=== PATIENT | male | born 1970 | race Caucasian/White ===

== ENCOUNTER 2018-02-16 11:34 | Outpatient (CLI) | payer BC | END 2018-02-16 11:35 | disposition home or self-care (01) | LOC: BICRAD 11:34 | PROVIDERS: ATTEND Podiatrist | DX: M19.072 Primary osteoarthritis, left ankle and foot (principal); E11.610 Type 2 diabetes mellitus with diabetic neuropathic arthropathy; S92.322A Displaced fracture of second metatarsal bone, left foot, initial encounter for closed fracture; M21.962 Unspecified acquired deformity of left lower leg ==

== ENCOUNTER 2018-03-07 13:06 | Outpatient (CLI) | payer BC | END 2018-03-07 13:07 | disposition home or self-care (01) | LOC: BICRAD 13:06 | PROVIDERS: ATTEND Podiatrist | DX: S92.322D Displaced fracture of second metatarsal bone, left foot, subsequent encounter for fracture with routine healing (principal) ==

== ENCOUNTER 2018-07-22 09:59 | Inpatient (IN) | payer BC, OTHER ==
--- NOTE | 2018-07-22 11:06 | RAD ---
LEFT ELBOW 4 VIEWS: HISTORY: Fracture. Injury. COMPARISON: None. FINDINGS: There is dislocation of the elbow joint with associated soft tissue swelling, joint effusion, and def ormity. There is a displaced olecranon fracture. The possibility of radial head injury cannot be ex cluded. Post reduction films are recommended. IMPRESSION: Posttraumatic changes as above. POS: [facility]
[2018-07-22] MEDS ORDERED: Ondansetron PF 4 MG/2 ML Vial ONE ×2 (11:32→12:35)
[2018-07-22] MEDS ORDERED: Morphine 2 MG/ML SYRINGE ONE (11:32)
[2018-07-22] MEDS ORDERED: PROPOFOL 20 ML ONE ×2 (11:44→13:10)
[2018-07-22 12:16] LABS: #Basophils 0.1 thou/uL (0.0-0.2); #Eosinphils 0.1 thou/uL (0.0-0.7); #Lymphocytes 1.3 thou/uL (1.20-3.40); #Monocytes 0.6 thou/uL (0.11-0.59); #Neutrophils 8.6 thou/uL (1.40-6.50); %Basophils 0.6 % (0.0-1.0); %Eosinophils 0.7 % (0.0-10.0); %Lymphocytes 12.1 % (21.0-51.0); %Monocytes 5.2 % (0.0-10.0); %Neutrophils 81.4 % (42.0-75.0); Hemoglobin 16.4 g/dL (14.0-18.0); Mean Corpuscular HGB CONC 31.7 g/dL (32.0-36.0); Mean Corpuscular Hemoglobin 27.8 pg (27.0-31.0); Mean Corpuscular Volume 87.6 fL (78.0-98.0); Mean Platelet Volume 8.4 fL (7.4-10.4); Platelet Count 250 thou/uL (130-400); RBC Distribution Width 11.7 % (11.5-14.5); Red Blood Cell (RBC) Count 5.91 mill/uL (4.70-6.10); White Blood Cell (WBC) Count 10.6 thou/uL (4.8-10.8)
[2018-07-22 12:32] LABS: ALT (SGPT) 15 U/L (8-55); AST (SGOT) 14 U/L (5-34); Alkaline Phosphatase 98 U/L (40-150); Anion Gap 14 mmol/L (10-20); BUN (Urea Nitrogen) 15 mg/dL (8.9-20.6); Calc. Creatinine Clearance 0 mL/min (70-130); Calcium 9.6 mg/dL (7.8-10.44); Carbon Dioxide 23 mmol/L (22-29); Chloride 99 mmol/L (98-107); Estimated GFR-MDRD 75; Globulin 3.2 g/dL (2.4-3.5); Glucose 343 mg/dL (70-105); Potassium 4.4 mmol/L (3.5-5.1); Protein, Total 7.2 g/dL (6.0-8.3); Sodium 132 mmol/L (136-145)
[2018-07-22] MEDS ORDERED: Lidocaine 1% PF 5 ML VIAL ONE (12:35)
[2018-07-22] MEDS ORDERED: PHENYLEPHRINE-NS 100 MCG/ML 10 ML SYRINGE ONE (12:35)
[2018-07-22] MEDS ORDERED: PROPOFOL 200 MG/20 ML VIAL ONE (12:35)
[2018-07-22] MEDS ORDERED: Ketorolac Tromethamine 30 MG/ML VIAL ONE (12:35)
[2018-07-22] MEDS ORDERED: ePHEDrine/0.9% NaCl/PF SYRINGE 50 mg/10 ml ONE (12:35)
[2018-07-22] MEDS ORDERED: KETAMINE 100 MG/ML (5ML VIAL) ONE (12:36)
--- NOTE | 2018-07-22 12:37 | CON ---
DATE OF CONSULTATION: 07/22/2018 REQUESTING PHYSICIAN: Jeny Zavaleta CONSULTING PHYSICIAN: Dr. Osmar Riley REASON FOR CONSULTATION: Left elbow fracture dislocation. HISTORY OF PRESENT ILLNESS: This is a 47-year-old male who presented to the emergency department today after a trip and fall at work. He states that he tripped over a band surrounding a pallet that was on the floor. He struck his left elbow. He noted immediate pain and the inability to move his elbow upon his fall. He denies any other injuries at the time of the fall. He is right hand dominant. Pain is worsened with movement and alleviated with rest. No numbness or tingling into the hand. PAST MEDICAL HISTORY: Significant for type 1 diabetes. PAST SURGICAL HISTORY: Significant for sinus surgery in 2005. SOCIAL HISTORY: The patient states he drinks alcohol socially every week. He denies any illicit drug use. Denies any smoking history. He lives at home with his who recently underwent brain surgery. FAMILY HISTORY: Reviewed and noncontributory. REVIEW OF SYSTEMS: A 10-point review of systems was conducted and otherwise negative except for as stated above. PHYSICAL EXAMINATION: VITAL SIGNS: Blood pressure of 112/73, pulse of 82, respiratory rate of 18, temperature of 97.4, O2 saturation is 96% on room air. GENERAL: The patient is awake and alert. He is sitting up at the bedside in the emergency department. He is in no acute distress. He is pleasant and cooperative with exam today. HEENT: Head is normocephalic, atraumatic. NECK: Supple. Trachea is midline. Breathing is nonlabored. EXTREMITIES: The left lower extremity was noted to have a moderate amount of soft tissue swelling at the olecranon region. Skin is intact overlying the fracture site. There is no tenderness to palpation at the shoulder or the proximal humerus. There is no tenderness to palpation of the forearm. Patient is unable to move his elbow at this time. Flexion and extension intact at the wrist. Patient is able to move all digits of the hand. He has difficulty with movement of the thumb. Sensation reported intact to all digits. Capillary refill 2 seconds. All other extremities examined and no other injuries are noted. RADIOGRAPHIC FINDINGS: Including 2 views of the left elbow are obtained in the emergency department. These were reviewed. These show evidence for a displaced olecranon fracture with a dislocation of the elbow joint. ASSESSMENT: Left elbow olecranon fracture with elbow dislocation. PLAN: The patient will undergo a closed reduction in the Emergency Department for better alignment of the left elbow joint. The patient states he last ate breakfast this morning at 8:30. Case discussed with Dr. Riley. We will plan for an open reduction internal fixation of a left olecranon fracture later this afternoon. Risks, benefits, and alternatives of surgery were discussed at length with the patient today. He verbalized understanding. He is amenable to go forward with this procedure. These risks include, but are not limited to bleeding, infection, neurovascular injury. We will plan to proceed with surgery later this afternoon. JAMES
--- NOTE | 2018-07-22 13:35 | RAD ---
[facility] LEFT ELBOW 2 VIEWS: Date: 07/22/18 Time: 1155 hours HISTORY: 47-year-old male status post reduction of acute, traumatic left elbow fracture, status post reduction . COMPARISON: 07/22/18 at 0928 hours. FINDINGS: There has been no significant interval change in the fracture of the olecranon process displaced prox imally relative to the rest of the ulna. The radial head remains dislocated and impacted within a fra cture defect in the caudal aspect of the capitellum. The elbow has been placed into a splint. There i s mild comminution of fracture fragments. IMPRESSION: 1. Interval placement of the elbow into a splint. 2. No interval change in alignment of the acute, traumatic, fracture-dislocation of the left elbow. POS: [facility]
--- NOTE | 2018-07-22 14:15 | RAD ---
TWO VIEWS LEFT ELBOW: HISTORY: Trauma with pain post reduction. FINDINGS: AP and lateral views left elbow obtained. Images demonstrate a fracture through the olecranon with moderate proximal distal fracture fragment d isplacement. The radial head is unremarkable. IMPRESSION: Slight somewhat reduction of the dislocated olecranon fracture. Proximal and distal fracture fragmen ts are improved when compared to the previous exam from earlier in the day. POS: [facility]
--- NOTE | 2018-07-22 14:22 | RAD ---
LEFT ELBOW 2 VIEWS: HISTORY: Post reduction. COMPARISON: Radiograph same day. FINDINGS: There is similar alignment of the transverse olecranon fracture with distraction of 1.8 cm. Large keegan int effusion. There are multiple bodies along the bilateral soft tissues. IMPRESSION: Distracted olecranon fracture. POS: [facility]
[2018-07-22] MEDS ORDERED: Insulin Regular 300 UNITS/3 ML VIAL ONE ×3 (15:28→20:07)
[2018-07-22] MEDS ORDERED: Fentanyl 100 MCG/2 ML VIAL ONE ×2 (16:06→20:32)
[2018-07-22] MEDS ORDERED: CEFAZOLIN 2 GM/50 ML BAG ONE (16:21)
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
[2018-07-22] MEDS ORDERED: Milk Of Magnesia 30 ML UDCUP PO PRN (19:43)
[2018-07-22] MEDS ORDERED: traMADol HCl 50 MG TAB PO PRN ×2 (19:43)
[2018-07-22] MEDS ORDERED: Acetaminophen/Codeine 30-300mg Tablet PO PRN ×2 (19:43)
[2018-07-22] MEDS ORDERED: HYDROcodone/Acetaminophen 10/325 mg Tablet PO PRN (19:43)
[2018-07-22] MEDS ORDERED: Fentanyl 100 MCG/2 ML VIAL SLOW IVP PRN (19:43)
[2018-07-22] MEDS ORDERED: Acetaminophen 325 MG TAB PO PRN (19:43)
[2018-07-22] MEDS ORDERED: Bisacodyl 10 MG SUPP PR PRN (19:43)
[2018-07-22] MEDS ORDERED: RENALLY ADJUST ANTIBIOTICS FS SCH (19:45)
[2018-07-22] MEDS ORDERED: Ondansetron HCl/PF 4 MG/2 ML Vial IVP PRN (19:45)
[2018-07-22] MEDS ORDERED: Promethazine HCl 25 MG/ML VIAL IM PRN (19:45)
[2018-07-22] MEDS ORDERED: Promethazine HCl 25 MG/ML VIAL SLOW IVP PRN (19:45)
[2018-07-22] MEDS ORDERED: HumaLOG 300 UNITS/3 ML VIAL ONE (20:06)
[2018-07-22 20:40] LABS: Actual Bicarbonate (HCO3a) 22.6 mEq/L (22-28); Base Excess (BEa) -2.5 mEq/L (-2.0 to +3.0); Calcium, Ionized 1.17 mmol/L (1.12-1.30); Carboxyhemoglobin (COHb) 1.1 gm% (0.0-3.0); Hemoglobin (Hb) 14.4 g/dL (14.0-18.0); O2 Tension (PaO2) 87.2 mmHg (80.0-100.0); Potassium - ABG Lab 3.99 mmol/L (3.70-5.30); pH, Arterial 7.37 (7.35-7.45)
[2018-07-22 20:46] LABS: Puncture Site RRAD
[2018-07-22] MEDS ORDERED: CEFAZOLIN 2 GM/50 ML BAG IVPB SCH (22:00)
--- NOTE | 2018-07-22 22:39 | RAD ---
THREE VIEWS OF LEFT ELBOW: 07/22/18 HISTORY: ORIF. FINDINGS: Three view examination of the left elbow provided. Evaluation is limited secondary to patient positio enrrique and the presence of a cast. There is postoperative hardware associated with the proximal left ul na, status post ORIF. No evidence for dislocation or hardware failure. IMPRESSION: Postoperative imaging as above. POS: [facility]
[2018-07-22] MEDS ORDERED: Pregabalin 75 MG CAP PO SCH (22:45)
[2018-07-22] MEDS ORDERED: Pregabalin 75 MG CAP ONE (23:14)
[2018-07-22] MEDS ORDERED: Dextrose 5% in Water 1,000 ML IV PRN (23:18)
[2018-07-22] MEDS: Aspirin 81 mg Enteric Coated Tablet PO SCH (23:18)
[2018-07-22] MEDS ORDERED: HumaLOG 300 UNITS/3 ML VIAL SC PRN ×2 (23:18)
[2018-07-22] MEDS ORDERED: Dextrose 50% Abboject 50 ML SYRINGE SLOW IVP PRN (23:18)
[2018-07-22] MEDS: HYDROcodone/Acetaminophen 10/325 mg Tablet PO PRN (23:19)
[2018-07-22] MEDS: Ketorolac Tromethamine 30 MG/ML VIAL IVP SCH (23:20)
[2018-07-22] MEDS: Ondansetron PF 4 MG/2 ML Vial IV PRN (23:59)
[2018-07-23] MEDS: Sodium Chloride 0.9% 100 ML IV SCH ×14 (00:06→15:12)
[2018-07-23] MEDS: CEFAZOLIN 2 GM/50 ML BAG IVPB SCH ×2 (00:54→09:28)
[2018-07-23 01:42] VITALS: BMI 27.7
[2018-07-23] MEDS ORDERED: Promethazine HCl 25 MG in Sodium Chloride 0.9% 50 ML IVPB PRN ×2 (02:38→02:45)
--- NOTE | 2018-07-23 03:07 | HP ---
CHIEF COMPLAINT: Left elbow injury. HISTORY OF PRESENT ILLNESS: This is a 47-year-old right-hand dominant male status post fall on his left elbow. The injury occurred at work, patient was at work and he tripped and fell on his left upper extremity specifically at the left elbow. Patient denies hitting his head or having any loss of consciousness. Patient stated that at this time, he is feeling much better status post surgery and patient is lying in bed and does not complain of any nausea, vomiting, dizziness, headaches, chest pain, palpitations, abdominal pain , hematuria, dysuria, hematochezia, melena. At this time, patient endorses pain at the left arm. REVIEW OF SYSTEMS: Positive for left arm pain, otherwise all other systems were reviewed and are negative. PAST MEDICAL HISTORY: Diabetes mellitus, type 1 on insulin pump. PAST SURGICAL HISTORY: Nasal surgery in 2005. FAMILY HISTORY: Reviewed and noncontributory to this visit. PSYCHIATRIC HISTORY: No previous psychiatric history. SOCIAL HISTORY: Patient drinks occasionally. Patient denies any illicit drug use and patient has no smoking history. ALLERGIES: Patient is allergic to BACTRIM. CURRENT MEDICATIONS: Patient does not take any medication at this time. Patient states that he uses his insulin pump. PHYSICAL EXAMINATION: VITAL SIGNS: Blood pressure 112/73, pulse of 82, respiratory rate of 18, temperature of 97.4, oxygen saturation is 96 on room air. GENERAL: Patient is currently awake, alert, oriented x3, lying in bed in the PACU, able to speak in full sentences, does not appear to be in any acute distress. HEENT: Normocephalic, atraumatic. Pupils are equally round and reactive to light. Extraocular movements are intact. No scleral icterus. Mucous membranes are moist. NECK: Trachea is midline. Full range of motion. Neck is supple. LUNGS: Clear to auscultation bilaterally. No wheezing, no rales, no rhonchi appreciated. CARDIOVASCULAR: Positive S1, S2. Regular rate and rhythm. No murmurs, no gallops or rubs appreciated. ABDOMEN: Soft, nontender, nondistended. Positive bowel sounds in all quadrants. No palpable masses. EXTREMITIES: Upper extremities: Patient has status post elbow repair and now has the left arm in a sling with dressing wrapped around the arm. Lower extremities: Patient has 5/5 strength in lower extremities, no edema noted. Good pulses bilaterally. NEUROLOGIC: Cranial nerves II through XII grossly intact. No neurologic deficit noted. SKIN: Warm, dry, and intact. Referred to description of the upper extremity. PSYCHIATRIC: Normal affect, alert and oriented x3. RADIOLOGY: Radiology interpretation for the upper extremity that was done before patient had a surgery showed dislocation of the elbow joint displaced olecranon fracture. LABORATORY DATA: WBC is 10.6, hemoglobin 16.4, hematocrit is 51.8, platelet is 250. Blood gas that was done showed pH of 7.34, pCO2 of 40, pO2 of 87.2. Chemistry: Sodium is 132, potassium is 4.4, chloride is 99, carbon dioxide of 23, anion gap of 14, BUN is 15, creatinine is 1.07, glucose is 343. Serum osmolality is 302. ASSESSMENT AND PLAN: This is a 47-year-old male with type 1 diabetes who is status post left elbow repair being admitted to the ICU for, 1. Severe hyperglycemia: At this point, patient is being admitted to the IMCU , so that he can be started on insulin drip due to the fact the patient has severe hyperglycemia with blood glucose of 354. Patient does not have his insulin pump at this time, therefore, we will continue the drip, we will do insulin sliding scale and we will keep patient's blood sugars between 140 and 180, we will continue to monitor the patient's blood sugars closely. 2. Status post left elbow repair. We will continue the patient on current management. We will follow up with Orthopedics recommendations. 3. Deep venous thrombosis and gastrointestinal prophylaxis. JARETHD
[2018-07-23] MEDS ORDERED: Morphine 2 MG/ML SYRINGE IVP PRN (03:53)
[2018-07-23 05:02] LABS: #Lymphocytes 1.2 thou/uL (1.20-3.40); #Monocytes 0.8 thou/uL (0.11-0.59); #Neutrophils 11.1 thou/uL (1.40-6.50); %Eosinophils 0.2 % (0.0-10.0); %Lymphocytes 9.4 % (21.0-51.0); %Neutrophils 84.4 % (42.0-75.0); Hemoglobin 13.5 g/dL (14.0-18.0); Mean Corpuscular HGB CONC 33.4 g/dL (32.0-36.0); Mean Corpuscular Hemoglobin 28.4 pg (27.0-31.0); Mean Corpuscular Volume 85.2 fL (78.0-98.0); Mean Platelet Volume 8.9 fL (7.4-10.4); Platelet Count 228 thou/uL (130-400); RBC Distribution Width 11.6 % (11.5-14.5); Red Blood Cell (RBC) Count 4.74 mill/uL (4.70-6.10); White Blood Cell (WBC) Count 13.2 thou/uL (4.8-10.8)
[2018-07-23] MEDS ORDERED: Pregabalin 75 MG CAP ONE (05:36)
[2018-07-23] MEDS: Ketorolac Tromethamine 30 MG/ML VIAL IVP SCH ×2 (05:39→11:07)
[2018-07-23] MEDS ORDERED: Pregabalin 75 MG CAP PO SCH (06:00)
[2018-07-23] MEDS: Ondansetron PF 4 MG/2 ML Vial IV PRN (06:18)
--- NOTE | 2018-07-23 08:13 | OP ---
DATE OF PROCEDURE: 07/22/2018 DICTATING DOCTOR: Osmar Riley M.D. BUSINESS [employer] INSTRUCTOR SURGEON: Gage Adorno PA-C ANESTHESIA: Dr. Ware. Patient received a general intubation. PREOPERATIVE DIAGNOSIS: left anteriro elbow fracture/dislocation with olecranon fracture POSTOPERATIVE DIAGNOSIS: left anterior elbow fracture/dislocation with olecranon fracture with LCL injury equivalent PROCEDURE: 1. Open reduction internal fixation of ulna fracture 2. LCL repair through screw post 3. Splint application ESTIMATED BLOOD LOSS: About 150 mL. TOURNIQUET TIME: 107 minutes at 250 mmHg. ANTIBIOTICS: Ancef. IMPLANTS: Synthes plate was a 2.7 x 3.5 variable angle olecranon plate, 2 holes left. PROCEDURE PERFORMED: With two 3.5 screws distally, one screws locking distally , one 2.7 nonlocking screw, and 2.7 variable angle locking screws, number 2 fiberwire COMPLICATIONS: None. HISTORY OF PRESENT ILLNESS: Mr. Pantera Berger is a 47-year-old male, status post fracture-dislocation of his left elbow. The patient fell on his left elbow , type 1 diabetic, had an elbow dislocation. The patient fell onto his left elbow, at which time he dislocated his elbow anteriorly. He had a closed reduction in the ER. The patient was unstable and had just an olecranon fracture and had a history of injury 3 years ago to his elbow. I discussed with the patient the risks and benefits of open reduction of his olecranon, any possible indicated procedures. Discussed risks and benefits of surgery to include pain, scar, bleeding, infection to vital structures, decreased range of motion or strength, need for further surgeries, failure of procedure despite surgical intervention, loss of life or limb, nonunion, malunion, infection given his history of diabetes. I discussed with patient these risks and benefits, and he elected to proceed. PROCEDURE IN DETAIL: Timeout was performed designating the patient's left upper extremity as the operative site based on site, consents, markings. After completion of the timeout, the patient's left upper extremity was prepped and draped in a sterile fashion. Tourniquet was brought up and left up for a total of 107 minutes. I made a dorsal incision, came down with sharp knife onto the distal ulna, which I used to elevate with an elevator just off the ulnar border to expose the ulnar moving proximally, noted the soft tissues coming down to the patient's olecranon. I split the olecranon tip. There was a comminuted lateral wall connected to insertion of LCL, which was a separate piece with a large oblique fragment that was more medially. I exposed the olecranon to place my plate in position. I placed the plate and pinned the fracture after reducing it medially and the lateral wall was difficult to reduce, because of the obliquity of the fracture. No ability to purchase. I felt that I mainly had to control the tip of the medial wall and the olecranon as I K-wired both proximally and distally to hold the fracture in position. I looked at AP and lateral radiographs to ensure that was reduced and the fracture was in good position. I then placed 2 locking screws proximally and then one 3.5 screw distally in the oblique hole. I then used the plate to compress through the fracture. With my distal 3.5 screw, I then reapproximated and placed 2 more 3.5 screws in and placed one more 2.7 screw in the shaft distally, so a total of 4 screws. Otherwise, upon doing this that the fracture was reduced, but the medial wall was not. I placed a 2.7 screw to help with LUCL reconstruction over a post, which I passed sutures through the LUCL running up and down the middle and tensioned ligament and passed that through to help to compress the lateral wall and perform the LUCL repair, because I felt that he was subluxing, because of this lack of lateral support. After doing this, I noticed that the fracture had become now reduced, my lateral wall remained reduction, but I had to undo my 4 previous screws. I then clamped the medial wall. I placed 2 oblique locking screws in position and then placed one more 2.7 screws out the cortex to hold that fragment and reduced that and removed my clamp. I felt like I had overall good arc of motion. The patient was reduced. If he came into 30 degrees of extension, the patient would dislocate anteriorly. The patient reduced as we washed. We closed fasicia over the plate. We closed skin/ subcutaneous tissues with with 0, 2-0, and nylon. The patient will be placed in a sugar tong long arm splint. I assured under AP and lateral radiographs that he was reduced. He will stay in that for approximately 10-14 days. I will not allow him to come out of the splint. He will be placed in a hinged elbow brace, which I will not allow him to go past 30 degrees of extension. I will see him back in clinic in 10-14 days for further splint removal likely and may keep the sutures in for a little bit longer. Of note, the patient complained of what was an ingrown toenail of the left great/big toe. I did not desire to see bacteremia with current repair of his left elbow. I would prefer to allow that to be done in a later date. I will likely keep the patient in-house for 24 hours of antibiotics as well as control of his serum blood glucose potentially on IV drip in ICU given labile SBG. MTDD
[2018-07-23] MEDS: HYDROcodone/Acetaminophen 10/325 mg Tablet PO PRN (08:49)
[2018-07-23] MEDS: Aspirin 81 mg Enteric Coated Tablet PO SCH (09:28)
[2018-07-23] MEDS ORDERED: HYDROcodone/Acetaminophen 5/325 mg Tablet PO PRN ×2 (09:32)
--- NOTE | 2018-07-23 10:38 | RAD ---
LEFT ELBOW 2 VIEWS: Date: 07/22/18 HISTORY: Fracture of the olecranon process of the ulna and dislocation of the ulnar joint. FINDINGS/IMPRESSION: Four spot fluoroscopic intraoperative images of the left elbow demonstrate interval reduction and int ernal fixation of the olecranon fracture since 07/22/18 with plate and screws. Dislocation at the elb ow joint has also been reduced. Anatomic alignment has been restored. POS: [facility]
--- NOTE | 2018-07-23 10:46 | RAD ---
RADIOGRAPH LEFT ELBOW 2 VIEWS: Date: 07/23/18 Time: 0830 hours HISTORY: 47-year-old male with traumatic fracture-dislocation of elbow. COMPARISON: 07/22/18 at 2115 hours. FINDINGS: Again noted are the metallic plate and screws fixating the proximal ulna. The elbow joint is located. Splint or cast remains. No interval change in alignment, which is nearly anatomical. IMPRESSION: 1. Status post open reduction and internal fixation of acute, traumatic left elbow fracture-dislocat ion. 2. No interval change since 07/22/18 at 2115 hours. POS: [facility]
--- NOTE | 2018-07-23 11:39 | PDOC.PN ---
- Subjective Encounter Start Date: 07/23/18 Encounter Start Time: 07:20 Pt seen for followup re; hyperglycemia. Denies chest pain, shortness of breath , fevers or chills. - Objective Resuscitation Status: Resuscitation Status FULL:Full Resuscitation MAR Reviewed: Yes Vital Signs & Weight: Vital Signs (12 hours) Temp Pulse Pulse Pulse Resp BP BP 07/23/18 10:17 114 H 107 H 135/75 153/94 H 07/23/18 09:43 07/23/18 08:00 07/23/18 07:34 97.8 F 97 07/23/18 04:00 98.0 F 102 H 17 07/23/18 00:23 98.5 F 110 H 20 07/22/18 23:40 BP Pulse Ox Pulse Ox Pulse Ox 07/23/18 10:17 94 L 96 07/23/18 09:43 98 07/23/18 08:00 100 07/23/18 07:34 127/77 99 07/23/18 04:00 112/70 94 L 07/23/18 00:23 138/76 94 L 07/22/18 23:40 95 Weight Weight 216 lb 3.2 oz I&O: 07/22/18 07/23/18 07/24/18 06:59 06:59 06:59 Intake Total 1700 Output Total 1100 Balance 600 Result Diagrams: 07/23/18 03:43 07/22/18 11:57 Additional Labs: Accuchecks 07/23/18 07/23/18 07/23/18 10:04 09:30 08:02 POC Glucose 197 H 162 H 195 H 07/23/18 07/23/18 07/23/18 07:01 06:05 05:07 POC Glucose 140 H 99 77 07/23/18 07/23/18 07/23/18 04:26 03:01 02:04 POC Glucose 111 H 205 H 226 H 07/23/18 07/22/18 07/22/18 01:10 23:12 20:05 POC Glucose 284 H 302 H 280 H 07/22/18 07/22/18 07/22/18 18:59 17:52 16:27 POC Glucose 271 H 307 H 385 H 07/22/18 15:21 POC Glucose 354 H EKG Reviewed by me: Yes (Tele: NSR) Phys Exam - Physical Examination Constitutional: NAD HEENT: moist MMs Neck: supple Respiratory: clear to auscultation bilateral Cardiovascular: RRR Gastrointestinal: soft s/p left elbow surgery Neurological: moves all 4 limbs Psychiatric: normal affect Dx/Plan (1) Hyperglycemia Code(s): R73.9 - HYPERGLYCEMIA, UNSPECIFIED Status: Acute Comment: sugars controlled now. Pt awaiting insulin pump and supplies. has been discharged by orthopedic surgery service, will sign off. - Plan * . Review of Systems - Review of Systems Cardiovascular: negative: chest pain, orthopnea, paroxysmal nocturnal dyspnea, edema, light headedness Gastrointestinal: negative: Nausea, Vomiting, Abdominal Pain, Diarrhea, Constipation, Melena, Hematochezia - Medications/Allergies Allergies/Adverse Reactions: Allergies Allergy/AdvReac Type Severity Reaction Status Date / Time sulfamethoxazole Allergy Verified 07/23/18 06:44 [From Bactrim] trimethoprim [From Bactrim] Allergy Verified 07/23/18 06:44 Medications: Current Medications Acetaminophen (Tylenol) 650 mg PO Q6H PRN PRN Reason: Headache/Temp >101F/Mild Pain Acetaminophen/Codeine Phosphate (Tylenol #3) 1 tab PO Q4H PRN PRN Reason: Moderate Pain (4-6) Acetaminophen/Codeine Phosphate (Tylenol #3) 2 tab PO Q4H PRN PRN Reason: Severe Pain (7-10) Hydrocodone Bitart/Acetaminophen ([place] 10/325) 1 tab PO Q4H PRN PRN Reason: Moderate Pain (4-6) Last Admin: 07/23/18 08:49 Dose: 1 tab Hydrocodone Bitart/Acetaminophen ([place] 10/325) 2 tab PO Q4H PRN PRN Reason: Severe Pain (7-10) Hydrocodone Bitart/Acetaminophen ([place] 5/325) 1 tab PO Q4H PRN PRN Reason: Mild-Moderate Pain (1-5) Hydrocodone Bitart/Acetaminophen ([place] 5/325) 2 tab PO Q4H PRN PRN Reason: Mild-Moderate Pain (1-5) Aspirin (Ecotrin) 81 mg PO BID SHELLI Last Admin: 07/23/18 09:28 Dose: 81 mg Bisacodyl (Dulcolax) 10 mg MD DAILY PRN PRN Reason: Constipation Cefazolin Sodium/Dextrose (Ancef 2 Gm/50 Ml) 2 gm IVPB 0100,0900,1700 [facility] Stop: 07/24/18 18:00 Last Admin: 07/23/18 09:28 Dose: 2 gm Dextrose/Water (Dextrose 50%) 25 gm SLOW IVP PRN PRN PRN Reason: Hypoglycemia Fentanyl (Sublimaze) 50 mcg SLOW IVP Q30M PRN PRN Reason: Severe breakthrough pain Glucagon (Glucagon) 1 mg IM PRN PRN PRN Reason: Hypoglycemia Sodium Chloride (Normal Saline 0.9%) 100 mls @ 100 mls/hr IV .Q1H [facility] Last Admin: 07/23/18 09:30 Dose: Not Given Insulin Human Regular 100 (units/ Sodium Chloride) 101 mls @ 0 mls/hr IVPB INF [facility]; Protocol Last Admin: 07/23/18 11:30 Dose: 101 mls Dextrose/Water (D5w) 1,000 mls @ 0 mls/hr IV .Q0M PRN PRN Reason: Hypoglycemia Promethazine HCl 25 mg/ Sodium (Chloride) 51 mls @ 204 mls/hr IVPB Q4H PRN PRN Reason: Nausea Last Admin: 07/23/18 03:04 Dose: 51 mls Indomethacin (Indocin) 25 mg PO TID [facility] Insulin Human Lispro (Humalog) 0 units SC .MODERATE SLIDING SC PRN PRN Reason: Moderate Correctional Scale Insulin Human Lispro (Humalog) 0 units SC .BEDTIME SLIDING SC PRN PRN Reason: Bedtime Correctional Scale Ketorolac Tromethamine (Toradol) 15 mg IVP Q6HR [facility] Stop: 07/23/18 23:59 Last Admin: 07/23/18 11:07 Dose: 15 mg Magnesium Hydroxide (Milk Of Magnesium) 30 ml PO DAILY PRN PRN Reason: Constipation Miscellaneous Information (Communication Order-Pharmacy) 1 each FS ONE [facility] Stop: 08/01/18 19:46 Morphine Sulfate (Morphine) 2 mg IVP Q2H PRN PRN Reason: Moderate Pain (4-6) Ondansetron HCl (Zofran) 4 mg PO Q6H PRN PRN Reason: Nausea Ondansetron HCl (Zofran) 4 mg IV Q6H PRN PRN Reason: Nausea Last Admin: 07/23/18 06:18 Dose: 4 mg Pneumococcal Polyvalent Vaccine (Pneumovax 23) 0.5 ml IM .ONCE ONE Stop: 07/24/18 09:01 Sodium Chloride (Flush - Normal Saline) 10 ml IVF PRN PRN PRN Reason: Saline Flush Tramadol HCl (Ultram) 50 mg PO Q6H PRN PRN Reason: Mild Pain (1-3) Tramadol HCl (Ultram) 100 mg PO Q6H PRN PRN Reason: Moderate Pain (4-6)
[2018-07-23 12:01] VITALS: BP 153/94; TEMP 98.2
[2018-07-23] MEDS ORDERED: Indomethacin 25 mg Capsule PO SCH (15:00)
--- NOTE | 2018-07-23 19:29 | DIS ---
DATE OF ADMISSION: 07/22/2018 DATE OF DISCHARGE: 07/23/2018 ADMITTING DIAGNOSES: 1. Left olecranon fracture dislocation with LCL equivalent injury. 2. Type 1 diabetic. 3. Fall from height. 4. Peripheral neuropathy. DISCHARGE DIAGNOSES: 1. Left olecranon fracture dislocation with LCL equivalent injury. 2. Type 1 diabetic. 3. Fall from height. 4. Peripheral neuropathy. PROCEDURES PERFORMED: 1. Open reduction internal fixation of olecranon fracture. 2. LCL reconstruction. 3. Long-arm splint application. HOSPITAL COURSE: Mr. Berger is a 47-year-old male who fell at work falling directly onto his elbow, fracturing and dislocating his elbow. The patient had motor and sensation intact before surgery, underwent an open reduction internal fixation of his ulna as well as reconstruction with FiberWire of his LCL. The patient in extension would dislocate after about 30 degrees. Postoperatively, last night, the patient was seen at bedside by Dr. Spann while in the recovery room and noted to have decreased sensation to his hand, which is likely a sequela of his peripheral neuropathy in stocking-glove distribution from his tourniquet down. The patient did have motor intact to AIN, PIN, medial , ulnar, and radial distributions. The patient has brisk capillary refill. The patient this morning was seen, still had the stocking-glove distribution, but that was improving. The patient has peripheral neuropathy to his bilateral lower extremities. The patient was able again to move all his hand and wrist. Intact motor. Intact AIN, PIN, median, ulnar, and radial. He had soft compartments. The patient's dressing had been re-applied by Dr. Spann and re -x-ray'ed. I took that down and re-applied a second dressing, because there was strikethrough on the dressing. The patient had a strikethrough in the dressing, therefore, I took the entire dressing down. The patient still had the stocking-glove distribution. He was still reduced on clinical exam. We cleaned out the patient's elbow. We preferred Prevena incisional VAC on his elbow. I am concerned about the patient's ability to heal his wounds. Therefore, we put the Prevena incisional wound VAC on his elbow. Then, we re- applied a posterior and sugar-tong splint. I took final x-rays. It showed that he was still reduced. We rechecked and his neuro exam was the same. He was admitted to ICU for management of SBGs per medicine. He was improved. The patient will be discharged home after he gets his supplies for his insulin pump with followup in 7-10 days. We will take off his splint. We will take off all his dressings. The patient will move his fingers until that time. He will be sent home with hydrocodone and indomethacin for heterotopic ossification prophylaxis. He will just remain in the splint until I see him back. The patient will need to follow up with Dr. Haywood for his worker's compensation primary treating doctor and follow up with me in about 7-10 days. JAMES
--- NOTE | 2018-07-24 17:37 | OP ---
DATE OF PROCEDURE: 07/22/2018 PREOPERATIVE DIAGNOSIS: Left olecranon fracture with anterior elbow dislocation. POSTOPERATIVE DIAGNOSIS: Left olecranon fracture with anterior elbow dislocation. PROCEDURE PERFORMED: Closed reduction, long arm splinting. STAFF: Osmar Riley M.D. ANESTHESIA: Per ER. The patient received ketamine and propofol. ESTIMATED BLOOD LOSS: None. TOURNIQUET TIME: None. IMPLANTS: None. ANTIBIOTICS: None. Application of long arm splint. HISTORY OF PRESENT ILLNESS: Mr. Berger is a 47-year-old male who sustained a fracture dislocation of his left elbow. I was consulted by ER with a failed attempt for closed reduction. The patient was going to be taken to the OR when OR is available, but may not be available for approximately 4-5 hours. Later, the patient received propofol per the ER for pain control. He understood the risks and benefits of procedure and elected to proceed. DESCRIPTION OF PROCEDURE: After the patient received propofol, 2 attempts of reduction were performed, I was able to reduce the elbow into position. I placed him in a splint, took final radiographs showing his hand and reduction, I took exam post-procedure showed he was neurovascularly intact. The patient will be planned to be taken to the OR today or this evening for open reduction internal fixation and any indicated procedures left elbow fracture dislocation. The patient understood the risks and benefits understood he might require an admission for his serum blood glucose. JAMES
--- NOTE | 2018-07-25 15:19 | OP ---
DATE OF PROCEDURE: 07/22/2018 PREOPERATIVE DIAGNOSIS: Left olecranon fracture with an anterior elbow dislocation. POSTOPERATIVE DIAGNOSIS: Left olecranon fracture with an anterior elbow dislocation. PROCEDURE PERFORMED: ER, closed reduction, left elbow fracture dislocation. STAFF: Osmar Riley M.D. ANESTHESIA: Per ER, propofol. ESTIMATED BLOOD LOSS: None. COMPLICATIONS: None. Splint applied. ANTIBIOTICS: None. HISTORY OF PRESENT ILLNESS: Mr. Berger is a 47-year-old male, is right-hand dominant saying he had an injury at work with an elbow fracture dislocation. The patient had an attempt by ER for closed reduction, which was unsuccessful. The patient is awaiting OR trap, therefore for soft tissue relaxation as well as improved vascular structures, so I like to help him with a closed reduction. The patient understood the risks and benefits of closed reduction, understood he would ultimately if any definitive surgery would be splitting him for soft tissue rest and elevation for on-call ER today versus tomorrow. The patient understood the risks and benefits of closed reduction pain, scar, need for further surgeries, infection, and failure, avascular necrosis, arthritis. He understood these risks and benefits and elected to proceed. DESCRIPTION OF PROCEDURE: After timeout, the patient's left arm received propofol in an attempt was done by the ER. I did a second reduction, which has failed, and then third with propofol completely relaxed, able to reduce the elbow. I took 4 final films, it showed that it was reduced and then placed in a long posterior sugar tong splint. The patient will be iced and elevated. We will plan to fix his olecranon later on today to help the patient with care of his with brain cancer. The patient will potentially stay overnight if we cannot control his sugars with type 1 diabetes. [facility]
== END 2018-07-23 15:15 | disposition home or self-care (01) | DRG 512 ==
LOC: ERS 09:59 → SDC 17:35 → IMCU/EMU 21:17
PROVIDERS: ADMIT Orthopaedic Surgery; ATTEND Orthopaedic Surgery
PROC: 0PSL04Z Reposition Left Ulna with Internal Fixation Device, Open Approach (ICD-10-PCS; principal; 2018-07-22)
PROC: 0PSLXZZ Reposition Left Ulna, External Approach (ICD-10-PCS; 2018-07-22)
DX: S52.022A Displaced fracture of olecranon process without intraarticular extension of left ulna, initial encounter for closed fracture (principal); E10.65 Type 1 diabetes mellitus with hyperglycemia; E10.42 Type 1 diabetes mellitus with diabetic polyneuropathy; Z96.41 Presence of insulin pump (external) (internal); Z88.2 Allergy status to sulfonamides; Z79.4 Long term (current) use of insulin; W01.0XXA Fall on same level from slipping, tripping and stumbling without subsequent striking against object, initial encounter
CPT/HCPCS: 36415; 36416; 76001; 80053; 82805; 83930; 85025; 86850; 86900; 86901; C1713; G8984-GP-CK; G8985-GP-CI; J1815; J1885; J2001; J2270; J2405; J2550; J2704; J3010; J7050

== ENCOUNTER 2018-07-26 00:23 | Emergency (ER) | payer BC | END 2018-07-26 05:05 | disposition home or self-care (01) | LOC: ERS 00:23 | DX: T81.89XA Other complications of procedures, not elsewhere classified, initial encounter (principal); E10.9 Type 1 diabetes mellitus without complications; Z79.1 Long term (current) use of non-steroidal anti-inflammatories (NSAID) | CPT/HCPCS: 99282 ==

== ENCOUNTER 2018-08-23 10:23 | Outpatient (CLI) | payer BC ==
--- NOTE | 2018-08-23 12:13 | RAD ---
LEFT GREAT TOE THREE VIEWS: 08/23/2018 HISTORY: Redness. Edema. COMPARISON: Left foot, three views, 03/07/2018 and 02/16/2018. Left toe, two views, 07/20/2017. FINDINGS: There are severe degenerative changes noted involving the first metatarsophalangeal joint, with subch ondral sclerosis, subchondral cystic change, and erosion at the level of the joint space. There is o steophyte formation as well. When compared to prior foot radiographs performed on 03/07/2018 and on 07/20/2017, there has been no significant interval change. The interphalangeal joint of the great to e appears grossly unremarkable, with mild degenerative change. There is no evidence for acute fractu re or dislocation. No radiopaque foreign body or subcutaneous gas. IMPRESSION: 1. 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 2. Mild degenerative change of first interphalangeal joint, with no subcutaneous gas or radiopaque f oreign body. POS: [facility]
== END 2018-08-23 10:24 | disposition home or self-care (01) ==
LOC: BICRAD 10:23
PROVIDERS: ATTEND Podiatrist
DX: R60.0 Localized edema (principal); L53.9 Erythematous condition, unspecified; M19.072 Primary osteoarthritis, left ankle and foot

== ENCOUNTER 2019-01-03 15:48 | Outpatient (CLI) | payer BC ==
--- NOTE | 2019-01-03 16:33 | RAD ---
Exam: Left ankle 3 views: HISTORY: Left ankle edema Findings and impression: Mild diffuse subcutaneous swelling of the lower leg and ankle. No fracture, dislocation, or other sig nificant acute osseous process.
== END 2019-01-03 15:49 | disposition home or self-care (01) ==
LOC: BICRAD 15:48
PROVIDERS: ATTEND Podiatrist
DX: R60.0 Localized edema (principal); M25.472 Effusion, left ankle; M79.89 Other specified soft tissue disorders

== ENCOUNTER 2019-06-13 13:24 | Outpatient (CLI) | payer BC ==
--- NOTE | 2019-06-13 13:55 | RAD ---
Left toes 3 views HISTORY: Toe pain. Follow-up. COMPARISON: 08/23/2008 and multiple previous years exams. FINDINGS: Extensive sclerosis involving the first metatarsal and proximal phalanx of the big toe agai n demonstrated. Similar in appearance to prior study. Extensive articular surface erosions at the first metatarsophalangeal joint with loss of articular surface contours is again demonstrated, now wi th continued improvement in definition of the cortex. Periosteal reaction has decreased slightly. No soft tissue calcification. Old healed second metatarsal fracture again demonstrated. Old fracture of head of proximal phalanx th ird toe. IMPRESSION: Slow continued healing of the ossific changes of the previously aggressive process at the first metatarsophalangeal joint. No new abnormalities are apparent.
== END 2019-06-13 13:25 | disposition home or self-care (01) ==
LOC: BICRAD 13:24
PROVIDERS: ATTEND Podiatrist
DX: M79.675 Pain in left toe(s) (principal); R60.0 Localized edema

== ENCOUNTER 2021-05-22 11:57 | Outpatient (CLI) | payer BC | END 2021-05-22 11:58 | disposition home or self-care (01) | LOC: BICRAD 11:57 | PROVIDERS: ATTEND Podiatrist | DX: S99.922A Unspecified injury of left foot, initial encounter (principal) ==

== ENCOUNTER 2021-09-30 13:03 | Outpatient (CLI) | payer BC | END 2021-09-30 13:04 | disposition home or self-care (01) | LOC: BICRAD 13:03 | PROVIDERS: ATTEND Podiatrist | DX: L97.529 Non-pressure chronic ulcer of other part of left foot with unspecified severity (principal); M19.072 Primary osteoarthritis, left ankle and foot; M86.672 Other chronic osteomyelitis, left ankle and foot ==

== ENCOUNTER 2022-02-05 12:34 | Outpatient (CLI) | payer BC | END 2022-02-05 12:35 | disposition home or self-care (01) | LOC: BICRAD 12:34 | PROVIDERS: ATTEND Podiatrist | DX: L89.890 Pressure ulcer of other site, unstageable (principal); R93.7 Abnormal findings on diagnostic imaging of other parts of musculoskeletal system ==

== ENCOUNTER 2022-06-10 13:12 | Outpatient (CLI) | payer BC | END 2022-06-10 13:13 | disposition home or self-care (01) | LOC: BICRAD 13:12 | PROVIDERS: ATTEND Podiatrist | DX: L97.529 Non-pressure chronic ulcer of other part of left foot with unspecified severity (principal) ==

== ENCOUNTER 2024-10-19 14:33 | Outpatient (CLI) | payer OTHER | END 2024-10-19 14:34 | disposition home or self-care (01) | LOC: BICRAD 14:33 | PROVIDERS: ATTEND Podiatrist | DX: M86.172 Other acute osteomyelitis, left ankle and foot (principal); M79.89 Other specified soft tissue disorders; T79.7XXA Traumatic subcutaneous emphysema, initial encounter; Z89.412 Acquired absence of left great toe ==

== ENCOUNTER 2024-10-21 14:26 | Inpatient (IN) | payer OTHER ==
[2024-10-21 17:04] LABS: #Basophils 0.05 10x3/uL (0.0-0.2); %Basophils 0.7 % (0.0-1.0); %Eosinophils 3.9 % (0.0-10.0); %Lymphocytes 23.6 % (21.0-51.0); %Monocytes 4.9 % (0.0-10.0); %Neutrophils 66.5 % (42.0-75.0); Hematocrit 45.9 % (42.0-52.0); Hemoglobin 15.3 g/dL (14.0-18.0); Mean Corpuscular HGB CONC 33.3 g/dL (32.0-36.0); Mean Corpuscular Hemoglobin 27.5 pg (27.0-31.0); Mean Corpuscular Volume 82.4 fL (78.0-98.0); Mean Platelet Volume 10.2 fL (7.4-10.4); Platelet Count 276 10x3/uL (130-400); RBC Distribution Width 12.2 % (11.5-14.5); Red Blood Cell (RBC) Count 5.57 mill/uL (4.70-6.10)
[2024-10-21 17:12] LABS: CRP,High Sensitivity (Inhouse) 1.52 mg/dL (< or = 0.5)
[2024-10-21 17:13] LABS: ALT (SGPT) 16 U/L (Less than 45); AST (SGOT) 18 U/L (11-34); Albumin 3.6 g/dL (3.1-4.5); Alkaline Phosphatase 91 U/L (40-110); Anion Gap 13 mmol/L (10-20); BUN (Urea Nitrogen) 13 mg/dL (8.4-25.7); Bilirubin, Total 0.6 mg/dL (0.3-1.2); Calc. Creatinine Clearance 0 mL/min (70-130); Calcium 9.1 mg/dL (7.8-10.44); Carbon Dioxide 24 mmol/L (22-29); Chloride 104 mmol/L (98-107); Estimated GFR 104; Globulin 3.8 g/dL (2.4-3.5); Glucose 276 mg/dL (70-105); Potassium 4.1 mmol/L (3.5-5.1); Protein, Total 7.4 g/dL (6.0-8.3); Sodium 137 mmol/L (136-145)
[2024-10-21] MEDS ORDERED: Acetaminophen 325 MG TAB PO PRN (17:34)
[2024-10-21] MEDS ORDERED: Ondansetron ODT 4 MG TAB PO PRN (17:34)
[2024-10-21] MEDS ORDERED: Ondansetron PF 4 MG/2 ML Vial IVP PRN (17:34)
[2024-10-21] MEDS ORDERED: Ketorolac Tromethamine 30 MG (1 mL) VIAL IVP PRN (17:34)
[2024-10-21] MEDS ORDERED: Acetaminophen 650 MG Suppository PR PRN (17:34)
[2024-10-21] MEDS ORDERED: Cefepime 2 GM VIAL ONE (17:39)
[2024-10-21] MEDS ORDERED: Sodium Chloride 0.9% 100 ML ONE (17:39)
[2024-10-21] MEDS: Sodium Chloride 0.9% 1,000 ML IV SCH (20:15)
[2024-10-21] MEDS: Vancomycin (BATCH) 2.5 GM in Premix 1 BAG IVPB SCH (20:15)
[2024-10-21] MEDS: Famotidine 20 MG TAB PO SCH (20:22)
[2024-10-21] MEDS ORDERED: Vancomycin 1 GM in Premix 1 BAG IVPB SCH (21:00)
[2024-10-21] MEDS ORDERED: Famotidine 20 MG TAB PO PRN (23:44)
[2024-10-21] MEDS ORDERED: Cyclobenzaprine 10 MG TAB PO PRN (23:44)
[2024-10-21] MEDS ORDERED: Glucagon 1 MG/ML KIT IM PRN (23:45)
[2024-10-21] MEDS ORDERED: Dextrose 50% Abboject 50 ML SYRINGE SLOW IVP PRN (23:45)
[2024-10-21] MEDS ORDERED: Insulin Lispro 100 UNIT/ML 10 ML VIAL SC PRN ×2 (23:45)
[2024-10-21] MEDS ORDERED: Dextrose 5% in Water 1,000 ML IV PRN (23:45)
[2024-10-22] MEDS: Cefepime 2 GM in Sodium Chloride 0.9% 100 ML IVPB SCH (00:42)
[2024-10-22 05:30] VITALS: BMI 30.4
[2024-10-22] MEDS ORDERED: Vancomycin 1 GM VIAL ONE (07:19)
[2024-10-22] MEDS ORDERED: Lidocaine 2% PF 5 ML VIAL ONE (07:19)
[2024-10-22] MEDS ORDERED: Bupivacaine PF 0.5% 30 ML VIAL ONE (07:20)
[2024-10-22 07:22] LABS: #Basophils 0.05 10x3/uL (0.0-0.2); %Basophils 0.8 % (0.0-1.0); %Eosinophils 4.9 % (0.0-10.0); %Lymphocytes 30.3 % (21.0-51.0); %Monocytes 7.4 % (0.0-10.0); %Neutrophils 56.3 % (42.0-75.0); Hematocrit 43.8 % (42.0-52.0); Hemoglobin 14.6 g/dL (14.0-18.0); Mean Corpuscular HGB CONC 33.3 g/dL (32.0-36.0); Mean Corpuscular Hemoglobin 27.5 pg (27.0-31.0); Mean Corpuscular Volume 82.5 fL (78.0-98.0); Mean Platelet Volume 10.5 fL (7.4-10.4); Platelet Count 257 10x3/uL (130-400); RBC Distribution Width 12.3 % (11.5-14.5); Red Blood Cell (RBC) Count 5.31 mill/uL (4.70-6.10)
[2024-10-22 07:33] LABS: Hemoglobin A1c 7.3 % (4.0-6.0)
[2024-10-22 07:37] LABS: Anion Gap 11 mmol/L (10-20); BUN (Urea Nitrogen) 12 mg/dL (8.4-25.7); Calc. Creatinine Clearance 163 mL/min (70-130); Calcium 8.7 mg/dL (7.8-10.44); Carbon Dioxide 25 mmol/L (22-29); Chloride 109 mmol/L (98-107); Estimated GFR 106; Glucose 100 mg/dL (70-105); Potassium 3.9 mmol/L (3.5-5.1); Sodium 141 mmol/L (136-145)
[2024-10-22 07:39] LABS: Vancomycin, Random 12.1 ug/mL (See Comment)
[2024-10-22] MEDS ORDERED: Dextrose 50% Abboject 50 ML SYRINGE ONE (07:47)
[2024-10-22] MEDS ORDERED: Midazolam HCl 2 mg/2 ml Vial ONE (07:56)
[2024-10-22] MEDS ORDERED: PROPOFOL 40 ML ONE (07:56)
[2024-10-22] MEDS ORDERED: fentaNYL PF 100 MCG/2 ML SYRINGE ONE (08:13)
[2024-10-22] MEDS ORDERED: Ondansetron PF 4 MG/2 ML Vial ONE (08:37)
[2024-10-22] MEDS ORDERED: Ondansetron HCl/PF 4 MG/2 ML Vial IVP PRN (08:47)
[2024-10-22] MEDS ORDERED: HYDROmorphone 2 MG/ML VIAL SLOW IVP PRN (08:47)
[2024-10-22] MEDS ORDERED: Promethazine HCl 25 MG/ML VIAL IM PRN (08:47)
[2024-10-22] MEDS: Vancomycin (BATCH) 1.75 GM in Premix 1 BAG IVPB SCH (10:27)
[2024-10-22] MEDS: Enoxaparin 40 MG (0.4 mL) SYRINGE SC SCH (10:28)
[2024-10-22] MEDS: Pantoprazole 40 MG DR.TAB PO SCH (10:28)
[2024-10-22] MEDS: Losartan 25 MG TAB PO SCH (10:28)
[2024-10-22] MEDS: Meloxicam 15 MG TAB PO SCH (11:01)
[2024-10-23 06:11] LABS: Anion Gap 9 mmol/L (10-20); BUN (Urea Nitrogen) 11 mg/dL (8.4-25.7); Calc. Creatinine Clearance 133 mL/min (70-130); Calcium 8.4 mg/dL (7.8-10.44); Carbon Dioxide 26 mmol/L (22-29); Chloride 109 mmol/L (98-107); Estimated GFR 98; Glucose 78 mg/dL (70-105); Potassium 3.9 mmol/L (3.5-5.1); Sodium 140 mmol/L (136-145)
[2024-10-23 06:37] LABS: #Basophils 0.06 10x3/uL (0.0-0.2); %Basophils 0.9 % (0.0-1.0); %Eosinophils 3.9 % (0.0-10.0); %Lymphocytes 28.9 % (21.0-51.0); %Monocytes 6.6 % (0.0-10.0); %Neutrophils 59.2 % (42.0-75.0); Hematocrit 40.2 % (42.0-52.0); Hemoglobin 13.3 g/dL (14.0-18.0); Mean Corpuscular HGB CONC 33.1 g/dL (32.0-36.0); Mean Corpuscular Hemoglobin 27.6 pg (27.0-31.0); Mean Corpuscular Volume 83.4 fL (78.0-98.0); Mean Platelet Volume 10.5 fL (7.4-10.4); Platelet Count 234 10x3/uL (130-400); RBC Distribution Width 12.3 % (11.5-14.5); Red Blood Cell (RBC) Count 4.82 mill/uL (4.70-6.10)
[2024-10-23] MEDS ORDERED: Triple Antibiotic Oint 1 GM Packet TOP PRN (11:17)
[2024-10-23 17:45] VITALS: BP 157/73; TEMP 97.9
[2024-10-24] MEDS ORDERED: Triple Antibiotic Oint 1 GM Packet TOP SCH (09:00)
== END 2024-10-23 17:10 | disposition home or self-care (01) | DRG 617 ==
LOC: ERS 14:26 → SURG B 17:43 → OBSVTOIN 20:46
PROVIDERS: ADMIT Hospitalist; ATTEND Internal Medicine
PROC: 0Y6N0ZC Detachment at Left Foot, Partial 3rd Ray, Open Approach (ICD-10-PCS; principal; 2024-10-22)
DX: E10.69 Type 1 diabetes mellitus with other specified complication (principal); M86.8X6 Other osteomyelitis, lower leg; E10.621 Type 1 diabetes mellitus with foot ulcer; E10.40 Type 1 diabetes mellitus with diabetic neuropathy, unspecified; Z89.412 Acquired absence of left great toe
CPT/HCPCS: 36415; 36416; 80048; 80053; 80202; 83036; 85025; 86141; 87040; 87070; 87076; 87077; 87186; 87205; 96374; 96375; A6223; G0378; J0665; J0692; J1650; J2250; J2405; J2704; J3370; J7030; J7999